=== PATIENT | female | born 1970 | race African-American/Black ===

== ENCOUNTER 2022-12-20 08:51 | Outpatient (CLI) | payer BC, SELFPAY ==
--- NOTE | 2023-01-08 14:30 | WPDSLEEPSTUD ---
Sleep Study Date of Study: 12/20/22 Ordering Provider: Yovany Nelson APRN Interpreting Physician: Samantha Morfin DO Sleep Study Type: Multiple Sleep Latency Test Height: 1.7 m Weight: 98.883 kg Body Mass Index: 34.1 Neck Circumference (inches): 13.75 [place]: 19 Reason for Sleep Study The patient is a 52 year-old Female who is 5' 7 and weighs 218.0 lbs. Her BMI equals 34.2.? A Multiple Sleep Latency Test was performed following a full night polysomnogram for evaluation of excessive daytime sleepiness. Sleep History Please see sleep history from polysomnogram from night prior. [facility] Past Medical History Medical History Anemia Arthritis Essential (primary) hypertension GERD (gastroesophageal reflux disease) Heart palpitations Lumbar radiculopathy Migraines Multinodular goiter Obesity Syncope and collapse Thyroid cancer partial thyroidectomy Vertigo Wears glasses Surgical History Surgical History H/O sinus surgery 05/2020 H/O thyroidectomy right 12/2021 History of back surgery laminectomy with subsequent removal of hardware in 2021 History of hysterectomy 09/15/2021 Hx of cholecystectomy 2004 Family History Family History Mother Ann's disease Heart disease Heart attack Cerebrovascular accident Coronary stent patent Other Hypertension Diabetes mellitus Cerebrovascular accident Heart attack Cancer Leukemia Social History Social History Smoking status: Never smoker Alcohol intake: never Substance use: never Substance use type: does not use Living arrangements: with family Occupation/Education: unemployed Gender identity (if verbalized by the patient): Female Medications Home Medications Medication Instructions Recorded Confirmed Type amlodipine 10 mg tablet 10 mg PO DAILY 11/21/22 11/22/22 History dicyclomine 10 mg capsule 10 mg PO QID 11/21/22 11/22/22 History fluticasone propionate 50 2 spray intranasal DAILY 11/21/22 11/22/22 History mcg/actuation nasal spray,suspension levothyroxine 100 mcg capsule 100 mcg PO DAILY 11/21/22 11/22/22 History lisinopril 10 mg tablet 10 mg PO DAILY 11/21/22 11/22/22 History loteprednol etabonate 0.25 % eye 2 drp EACH EYE QID 11/21/22 11/22/22 History drops,suspension omeprazole 20 mg capsule,delayed 20 mg PO BID 11/21/22 11/22/22 History release propranolol 60 mg tablet 60 mg PO Q12H 11/21/22 11/22/22 History rimegepant 75 mg disintegrating 75 mg PO ONCE PRN 11/21/22 11/22/22 History tablet (Nurtec ODT) cyclobenzaprine 10 mg tablet 10 mg PO TID PRN 11/22/22 11/22/22 History lasmiditan 100 mg tablet 100 mg PO ONCE PRN 11/22/22 11/22/22 History sennosides 8.6 mg-docusate sodium 1 tab-cap PO QHS PRN 11/22/22 11/22/22 History 50 mg tablet (Senna with Docusate Sodium) Sleep Procedure The recording montage for the MSLT includes central EEG (C3-A2, C4-A1) and occipital (O1-A2, O2-A1) derivations, left and right eye electrooculograms (EOGs), mental/submental electromyogram (EMG), and electrocardiogram (EKG). Sleep Architecture Nap Summary: Study started at 10:10:17 AM. Nap 1 sleep latency was 15.5 minutes, REM sleep was not present. The patient said that sleep occurred. The patient reported dreaming. Nap 2 sleep latency was 12.9 minutes, REM sleep was not present. The patient said that sleep occurred. The patient reported dreaming. Nap 3 sleep latency was 19.0 minutes, REM sleep was not present. The patient said that sleep occurred. The patient reported dreaming. Nap 4 sleep latency was 4.5 minutes, REM sleep was not present. The patient said that sleep occurred. The patient reported dreaming. There were 4 nap opportunities with a mean sleep latency of 1
[2023-01-08 14:42] VITALS: BMI 34.1
--- NOTE | 2023-01-08 14:50 | WPDSLEEPSTUD ---
Sleep Study Date of Study: 12/20/22 Ordering Provider: Yovany eNlson APRN Interpreting Physician: Samantha Morfin DO Sleep Study Type: Polysomnogram Height: 1.7 m Weight: 98.883 kg Body Mass Index: 34.1 Neck Circumference (inches): 13.75 [place]: 19 Reason for Sleep Study Excessive daytime sleepiness Sleep History The patient is a 52-year-old female with hypertension, GERD, arthritis, heart palpitations, lumbar radiculopathy, migraines, goiter, obesity and history of thyroid cancer that had a polysomnogram and MSLT ordered for evaluation narcolepsy. The patient denies awakening from sleep short of breath. She rarely awakens at night with heartburn, belching or cough. She occasionally snores but it is rarely loud enough that others complain. She occasionally has trouble sleeping when she has a cold. She denies waking up gasping for air throughout the night. She denies having breathing problems at night observed by herself or others. She rarely sweats excessively at night. She rarely has heart palpitations or irregular heartbeats during the night. She constantly falls asleep during the day but never while driving. She occasionally experiences loss of muscle tone when extremely emotional. She frequently has trouble at school or work due to sleepiness. She occasionally feels unable to move waking up or falling asleep. She occasionally experiences vivid dreamlike scenes upon awakening or falling asleep. She occasionally feels afraid of going to sleep. She rarely has nightmares and occasionally remembers her dreams. She occasionally has thoughts racing through her mind. She rarely feels sad or depressed. She occasionally has anxiety. She rarely has muscular tension. She rarely notices parts of her body jerk. She rarely kicks during the night. She rarely has crawling and aching feelings in her legs but occasionally has leg pain during the night. She rarely grinds her teeth during sleep and rarely awakens with morning jaw pain. She is frequently bothered by pain during the day and occasionally awakened by pain during the night. She frequently wakes up feeling stiff in the morning. She frequently wakes up with sore or achy muscles. She frequently wakes up with pain in the neck, spine or other joints. She goes to bed between 9-10 p.m. on both weekdays and weekends. It takes her 30-60 minutes to fall asleep. She wakes up at 3:00 a.m. to take medication or use the restroom but is able fall back asleep within 30-60 minutes. She wakes up at 5:00 a.m. on both weekdays and weekends. She typically gets 7 8 hours of sleep per night. She does not stay in bed after waking up in the morning. She currently lives with her and teenage son. She denies consuming any caffeinated beverages within 2 hours of bedtime. She denies engaging in physical exercise before bedtime. She will read and watch television before falling asleep. She will take naps in afternoon or the evening but they are not refreshing. She denies consuming caffeinated beverages throughout the day. She denies tobacco, alcohol and recreational drug use. [facility] Past Medical History Medical History Anemia Arthritis Essential (primary) hypertension GERD (gastroesophageal reflux disease) Heart palpitations Lumbar radiculopathy Migraines Multinodular goiter Obesity Syncope and collapse Thyroid cancer partial thyroidectomy Vertigo Wears glasses Surgical History Surgical History H/O sinus surgery 05/2020 H/O thyroidectomy right 12/2021 History of back surgery laminectomy with subsequent removal of hardware in 2021 History of hysterectomy 09/15/2021 Hx of cholecystectomy 2004 Family History Family History Mother Ann's disease Heart disease Heart attack Cerebrov
[2023-01-08 14:52] VITALS: BMI 34.1
== END 2022-12-21 16:40 | disposition home or self-care (01) ==
LOC: ANHCSM 08:55
PROVIDERS: PCP Nurse Practitioner Family; Visit Provider Nurse Practitioner Family
DX: G47.10 Hypersomnia, unspecified (principal)
CPT/HCPCS: 95805; 95810